=== PATIENT | male | born 1980 | race African-American/Black ===

== ENCOUNTER 2017-09-16 14:43 | Emergency (ER) | payer OTHER ==
[2017-09-16] MEDS ORDERED: DIPH,PERTUS(ACELL)TETVAC-LF 0.5 ML VIAL IM ONE (15:07)
[2017-09-16 15:09] VITALS: BP 110/70; PULSE 61; RESP 18; TEMP 98.3
--- NOTE | 2017-09-16 15:15 | ED ---
General Adult HPI - General Chief complaint: Wound/Laceration Stated complaint: Laceration Time Seen by Provider: 09/16/17 15:07 Source: patient, RN notes reviewed Mode of arrival: ambulatory Limitations: no limitations - History of Present Illness Initial comments: Patient 37-year-old male presenting to the emergency room today with chief complaint of laceration to the right forearm that occurred approximately 3 hours ago. He does with that he was using a steel box toe inserter slipped causing this laceration. Patient denies any other complaints or symptoms. Patient states tetanus up-to-date. Patient denies any recent fever, chills, shortness of breath , chest pain, back pain, abdominal pain, nausea or vomiting, numbness or tingling, headaches or visual changes, or any other complaints. - Related Data Allergies Allergy/AdvReac Type Severity Reaction Status Date / Time No Known Allergies Allergy Verified 09/16/17 15:07 Review of Systems ROS Statement: Those systems with pertinent positive or pertinent negative responses have been documented in the HPI. ROS Other: All systems not noted in ROS Statement are negative. Past Medical History Past Medical History: No Reported History History of Any Multi-Drug Resistant Organisms: None Reported Past Surgical History: No Surgical Hx Reported Past Psychological History: No Psychological Hx Reported Smoking Status: Current every day smoker Past Alcohol Use History: None Reported Past Drug Use History: None Reported General Exam - General Exam Comments Initial Comments: General: The patient is awake and alert, in no distress, and does not appear acutely ill. Neck: The neck is supple, there is no tenderness or JVD. Musculoskeletal/skin: Patient does have a 1 cm linear laceration to the volar aspect of the right forearm. Mild venous oozing. Full range motion. Sensation intact. Pulses equal bilaterally 2+ per strength 5/5. Neurological: A&O x 3. CN II-XII intact, There are no obvious motor or sensory deficits. Coordination appears grossly intact. Speech is normal. Psychiatric: Normal mood and affect. Limitations: no limitations Course Vital Signs 09/16/17 15:07 Temperature 98.3 F Pulse Rate 61 Respiratory 18 Rate Blood Pressure 110/70 O2 Sat by Pulse 100 Oximetry Procedures - Procedures Initial comment: Patient's laceration proximal 1 cm to the right volar aspect of the forearm. The skin was anesthetized with 1% lidocaine with epinephrine. The laceration was then cleansed with and irrigated with normal saline. The wound was inspected , and there was no evidence of injury to deep structures. No foreign body was noted in the wound. A total of 2 skin sutures were placed utilizing 4-0 nylon. Medical Decision Making - Medical Decision Making Patient's laceration close to the emergency room. Patient's tetanus updated. Patient discharged home. Advised watch for signs of infection return for any other concerns and have sutures removed in 7-10 days. Disposition Clinical Impression: Laceration Disposition: HOME SELF-CARE Condition: Good Instructions: Laceration (ED) Additional Instructions: Please return to the emergency room in 8-10 days to have sutures removed. Please watch for any signs of infection which may include increased pain, swelling, redness, fever or chills. Please return to emergency room for any signs of infection do occur. Please use clean soap and water over the area to prevent scabbing over your stitches. Please leave wound covered for the first 24-48 hours and then leave wound open to air. Please return to the emergency room for any other concerns. Is patient prescribed a controlled substance at d/c from ED?: No Referrals: Ramo Whitaker MD [Primary Care Provider] - 1-2 days Time of Disposition: 15:41
[2017-09-16] MEDS ORDERED: LIDOCAINE 1%/EPI 1:200,000 MPF 10 ML VIAL SQ STA (15:21)
[2017-09-16] MEDS ORDERED: LIDOCAINE 1%-EPI 1:100,000 30 ML VIAL SQ STA (15:28)
== END 2017-09-16 16:09 | disposition home or self-care (01) ==
LOC: EC 14:43
DX: S51.811A Laceration without foreign body of right forearm, initial encounter (principal); F17.200 Nicotine dependence, unspecified, uncomplicated; Z23 Encounter for immunization; W27.8XXA Contact with other nonpowered hand tool, initial encounter; Y93.89 Activity, other specified; Y92.69 Other specified industrial and construction area as the place of occurrence of the external cause; Y99.0 Civilian activity done for income or pay
CPT/HCPCS: 12001; 90471; 90715; 99282

== ENCOUNTER 2018-08-06 08:22 | Day surgery (SDC) | payer BC ==
[2018-08-04 15:46] VITALS: BMI 19.2
[2018-08-06] MEDS ORDERED: LIDOCAINE 1% 20 ML VIAL (10MG/ML) FOR IV START INTRADERMA ONE (08:52)
[2018-08-06] MEDS ORDERED: LACTATED RINGERS 1,000 ML IV ONE (08:52)
[2018-08-06 08:57] VITALS: RESP 16; TEMP 97.2
[2018-08-06] MEDS ORDERED: PROPOFOL 10 MG/ML 20 ML VIAL IV ONE (09:39)
--- NOTE | 2018-08-06 10:04 | P.PCN ---
Date of Procedure: 08/06/18 Procedure(s) Performed: Brief history: Patient is a pleasant 38-year-old -[place] male, scheduled for an elective upper endoscopy as well as colonoscopy as a part of evaluation of iron deficiency anemia and Hemoccult-positive stool. Procedure performed: Esophagogastroduodenoscopy with biopsy Colonoscopy Preoperative diagnosis: Iron deficiency anemia Hemoccult positive stool [place] [facility] [place]: After informed consent was obtained from the patient was brought into the endoscopy unit and IV sedation was administered by anesthesia under continuous monitoring. Initially upper endoscopy was done. The Olympus GF 160 video endoscope was inserted inserted into the mouth and esophagus intubated without any difficulty and was gradually advanced into the stomach and duodenum and carefully examined. The bulb and second part of the duodenum appeared normal. Biopsies were done from the duodenum to rule out celiac disease. The scope was then withdrawn into the stomach adequately insufflated with air and upon careful examination the antrum had mild gastritis and biopsies were done from this area. The body, cardia and fundus appeared normal. The scope was then withdrawn into the esophagus. The GE junction was located at 40 cm to the incisors. It appeared regular with no erythema erosions or ulcerations. Rest of the esophagus appeared normal. Patient tolerated the procedure well. At this time the patient continued to remain sedation. Initial digital rectal examination was normal. Olympus CF 160 video colonoscope was then inserted into the rectum and gradually advanced to the cecum without any difficulty. Careful examination was performed as the scope was gradually being withdrawn. The prep was excellent. The cecum, ascending colon, transverse colon, descending colon, sigmoid colon and rectum appeared normal. Retroflexion was performed in the rectum and no lesions were noted. Patient tolerated the procedure well. Impression: 1. Upper endoscopy revealed mild antral gastritis. 2. Colonoscopy was within normal with a colitis or colorectal neoplasia Recommendations: Findings of this examination were discussed with the patient as well as his family. He was advised to follow with the biopsy results.
[2018-08-06 10:30] VITALS: BP 123/87; PULSE 66
== END 2018-08-06 10:56 | disposition home or self-care (01) ==
LOC: ORWHC2ENDO 08:22
PROVIDERS: ATTEND Internal Medicine Gastroenterology
DX: K29.50 Unspecified chronic gastritis without bleeding (principal); D50.9 Iron deficiency anemia, unspecified; F17.200 Nicotine dependence, unspecified, uncomplicated
CPT/HCPCS: 88305; 45378; 43239; J2704

== ENCOUNTER 2018-09-27 06:27 | Day surgery (SDC) | payer BC ==
[2018-09-22 16:20] VITALS: BMI 17.9
[~2018-09-27 06:27] MED LIST: DEXAMETHASONE SOD PHOSPHATE 10 MG/ML 1 ML VIAL IV ONE; LACTATED RINGERS 1,000 ML IV SCH; LIDOCAINE 1% 20 ML VIAL (10MG/ML) FOR IV START INTRADERMA PRN; MIDAZOLAM 2 MG/2 ML VIAL IV PRN; fentaNYL (PF) 50 MCG/ML 2 ML AMP IV PRN
[2018-09-27 06:50] VITALS: RESP 16; TEMP 97.7
[2018-09-27] MEDS ORDERED: MIDAZOLAM 2 MG/2 ML VIAL ONE (07:31)
[2018-09-27] MEDS ORDERED: PROPOFOL 10 MG/ML 20 ML VIAL IV ONE (07:31)
[2018-09-27] MEDS ORDERED: fentaNYL (PF) 50 MCG/ML 2 ML AMP ONE (07:31)
--- NOTE | 2018-09-27 08:21 | PCN ---
PROCEDURE NOTE DATE OF SERVICE: September 27, 2018. PROCEDURE: Bone marrow aspirate and biopsy. INDICATION: Polycythemia vera. PROCEDURE: After obtaining consent from the patient, the procedure was performed in the endoscopy suite under general anesthesia performed by the anesthesia team. The patient was put in the left lateral decubitus position. The right posterior superior iliac crest was localized. Skin was cleansed with ChloraPrep. All sterile procedures were followed. Two milliliters of 2% Xylocaine was used for local anesthetic. The Monoject needle was inserted and 15 mL of aspirate was obtained and 1 cm core biopsy was obtained without any difficulties. Pressure applied afterwards. There was negligible blood loss. The patient tolerated the procedure very well without any immediate complications. MMODL / IJN: [id number] /
[2018-09-27 08:27] LABS: Anisocytosis Slight; Basophils # (A) 0.1 k/uL (0-0.2); Basophils % (A) 1 %; Eosinophils # (A) 0.4 k/uL (0-0.7); Eosinophils % (A) 8 %; HGB 18.8 gm/dL (13.0-17.5); Hypochromasia Slight; Lymphocytes # (A) 1.7 k/uL (1.0-4.8); Lymphocytes % (A) 29 %; MCH 23.3 pg (25.0-35.0); MCHC 30.7 g/dL (31.0-37.0); MCV 76.1 fL (80.0-100.0); Microcytosis Slight; Monocytes # (A) 0.4 k/uL (0-1.0); Monocytes % (A) 6 %; Neutrophils # (A) 2.9 k/uL (1.3-7.7); Neutrophils % (A) 52 %; Platelet Count 702 k/uL (150-450); Poikilocytosis Slight; RDW 17.5 % (11.5-15.5); Reticulocyte % 1.5 % (0.5-2.0); WBC 5.6 k/uL (3.8-10.6)
[2018-09-27 08:35] LABS: HCT 61.3 % (39.0-53.0); RBC 8.06 m/uL (4.30-5.90)
[2018-09-27 08:39] VITALS: BP 108/75; PULSE 64
== END 2018-09-27 09:07 | disposition home or self-care (01) ==
LOC: OR 06:27
PROVIDERS: ATTEND Internal Medicine Hematology & Oncology
DX: D45 Polycythemia vera (principal); K21.9 Gastro-esophageal reflux disease without esophagitis; F17.210 Nicotine dependence, cigarettes, uncomplicated; Z79.1 Long term (current) use of non-steroidal anti-inflammatories (NSAID); Z79.82 Long term (current) use of aspirin
CPT/HCPCS: 38222; 85025; 85045; J2250; J3010; J2704

== ENCOUNTER 2018-10-14 11:28 | Emergency (ER) | payer BC ==
[2018-10-14] MEDS ORDERED: SODIUM CHLORIDE 0.9% 1,000 ML IV STA (12:27)
--- NOTE | 2018-10-14 12:36 | ED ---
General Adult HPI - General Chief complaint: Dizziness Stated complaint: SOB, syncope Time Seen by Provider: 10/14/18 12:02 Source: patient, RN notes reviewed, old records reviewed Mode of arrival: ambulatory Limitations: no limitations - History of Present Illness Initial comments: Patient is a 38-year-old male who presents emergency Department today with complaints of dyspnea, dizziness plate is worse today. 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 He states that he sat down drink a lot of water during accident time he is continue to walk and still felt some shortness of breath. He has history of polycythemia vera. He states he had his last phlebotomy procedure done yesterday. Patient states that he is otherwise feeling well at this time. He denies any specific chest pain. - Related Data Home Medications Medication Instructions Recorded Confirmed Aspirin 325 mg PO DAILY 09/22/18 09/27/18 [id number] 1 each PO DIRECTED PRN 09/22/18 09/27/18 [Excedrin] Ibuprofen 800 mg PO DAILY PRN 09/22/18 09/27/18 Allergies Allergy/AdvReac Type Severity Reaction Status Date / Time No Known Allergies Allergy Verified 10/14/18 11:56 Review of Systems ROS Statement: Those systems with pertinent positive or pertinent negative responses have been documented in the HPI. ROS Other: All systems not noted in ROS Statement are negative. Past Medical History Past Medical History: No Reported History Additional Past Medical History / Comment(s): hx shingles, continues to have nerve pain left side of face, occasional migraines with blurred vision, poly cythemia History of Any Multi-Drug Resistant Organisms: None Reported Past Surgical History: No Surgical Hx Reported Additional Past Surgical History / Comment(s): colonoscopy, egd Past Anesthesia/Blood Transfusion Reactions: No Reported Reaction Additional Past Anesthesia/Blood Transfusion Reaction / Comment(s): . Past Psychological History: No Psychological Hx Reported Smoking Status: Current every day smoker Past Alcohol Use History: None Reported Past Drug Use History: None Reported - Past Family History Mother Family Medical History: No Reported History General Exam Limitations: no limitations General appearance: alert, in no apparent distress Head exam: Present: atraumatic, normocephalic, normal inspection Eye exam: Present: normal appearance, PERRL, EOMI. Absent: scleral icterus, conjunctival injection, periorbital swelling ENT exam: Present: normal exam, mucous membranes moist Neck exam: Present: normal inspection. Absent: tenderness, meningismus, lymphadenopathy Respiratory exam: Present: normal lung sounds bilaterally. Absent: respiratory distress, wheezes, rales, rhonchi, stridor Cardiovascular Exam: Present: regular rate, normal rhythm, normal heart sounds. Absent: systolic murmur, diastolic murmur, rubs, gallop, clicks GI/Abdominal exam: Present: soft, normal bowel sounds. Absent: distended, tenderness, guarding, rebound, rigid Course Vital Signs 10/14/18 10/14/18 10/14/18 11:52 12:57 12:59 Temperature 98.0 F Pulse Rate 72 62 Respiratory 16 28 H 18 Rate Blood Pressure 104/68 94/67 O2 Sat by Pulse 99 100 Oximetry 10/14/18 10/14/18 10/14/18 13:00 13:10 13:20 Temperature Pulse Rate 61 63 Respiratory 12 Rate Blood Pressure 94/67 91/61 112/73 O2 Sat by Pulse 99 100 Oximetry 10/14/18 10/14/18 13:30 13:40 Temperature Pulse Rate 58 L 64 Respiratory 16 16 Rate Blood Pressure 112/73 107/75 O2 Sat by Pulse 100 100 Oximetry Medical Decision Making - Medical Decision Making Patient is a 38-year-old male present today with episodes of near-syncope and felt short of breath lately work. Patient has history of positive TB of ear. Patient was receiving IV fluids are obtained. Upon arrival here he stated he otherwise felt well, denies any chest pain or symptoms. Patient lungs are clear to auscultation. Vital signs stable. EKG shows no significant change. Troponin and d-dimer are negative. Patient does have elevated platelets. Patient advised to options to could admit the Patient for for near syncope. Patient states he thinks this is related to heat exhaustion from work and would like to be discharged home. Discussed natriuretic hydrated. Discussed linear have any further symptoms to return to emergency department for reevaluation. All questions were answered. - Lab Data Result diagrams: 10/14/18 12:53 10/14/18 12:53 Lab Results 10/14/18 10/14/18 10/14/18 Range/Units 12:53 12:53 12:53 WBC 5.7 (3.8-10.6) k/uL RBC 6.76 H (4.30-5.90) m/uL Hgb 15.5 D (13.0-17.5) gm/dL Hct 50.3 (39.0-53.0) % MCV 74.4 L (80.0-100.0) fL MCH 22.9 L (25.0-35.0) pg MCHC 30.8 L (31.0-37.0) g/dL RDW 17.1 H (11.5-15.5) % Plt Count 856 H (150-450) k/uL Neutrophils % (Manual) 58 % Lymphocytes % (Manual) 25 % Monocytes % (Manual) 11 % Eosinophils % (Manual) 6 % Neutrophils # (Manual) 3.31 (1.3-7.7) k/uL Lymphocytes # (Manual) 1.43 (1.0-4.8) k/uL Monocytes # (Manual) 0.63 (0-1.0) k/uL Eosinophils # (Manual) 0.34 (0-0.7) k/uL Nucleated RBCs 0 (0-0) /100 WBC Manual Slide Review Performed Dimorphic RBCs Present Hypochromasia Marked Poikilocytosis Slight Anisocytosis Slight Microcytosis Slight Target Cells Present Ovalocytes Present PT 12.3 H (9.0-12.0) sec INR 1.2 H (<1.2) D-Dimer (<0.60) mg/L FEU Sodium 139 (137-145) mmol/L Potassium 4.4 (3.5-5.1) mmol/L Chloride 104 (98-107) mmol/L Carbon Dioxide 25 (22-30) mmol/L Anion Gap 10 mmol/L BUN 10 (9-20) mg/dL Creatinine 0.75 (0.66-1.25) mg/dL Est GFR (CKD-EPI)AfAm >90 (>60 ml/min/1.73 sqM) Est GFR (CKD-EPI)NonAf >90 (>60 ml/min/1.73 sqM) Glucose 81 (74-99) mg/dL Calcium 9.8 (8.4-10.2) mg/dL Total Bilirubin 0.9 (0.2-1.3) mg/dL AST 30 (17-59) U/L ALT 18 L (21-72) U/L Alkaline Phosphatase 48 (38-126) U/L Troponin I (0.000-0.034) ng/mL Total Protein 7.4 (6.3-8.2) g/dL Albumin 4.5 (3.5-5.0) g/dL 10/14/18 10/14/18 Range/Units 12:53 12:53 WBC (3.8-10.6) k/uL RBC (4.30-5.90) m/uL Hgb (13.0-17.5) gm/dL Hct (39.0-53.0) % MCV (80.0-100.0) fL MCH (25.0-35.0) pg MCHC (31.0-37.0) g/dL RDW (11.5-15.5) % Plt Count (150-450) k/uL Neutrophils % (Manual) % Lymphocytes % (Manual) % Monocytes % (Manual) % Eosinophils % (Manual) % Neutrophils # (Manual) (1.3-7.7) k/uL Lymphocytes # (Manual) (1.0-4.8) k/uL Monocytes # (Manual) (0-1.0) k/uL Eosinophils # (Manual) (0-0.7) k/uL Nucleated RBCs (0-0) /100 WBC Manual Slide Review Dimorphic RBCs Hypochromasia Poikilocytosis Anisocytosis Microcytosis Target Cells Ovalocytes PT (9.0-12.0) sec INR (<1.2) D-Dimer 0.20 (<0.60) mg/L FEU Sodium (137-145) mmol/L Potassium (3.5-5.1) mmol/L Chloride (98-107) mmol/L Carbon Dioxide (22-30) mmol/L Anion Gap mmol/L BUN (9-20) mg/dL Creatinine (0.66-1.25) mg/dL Est GFR (CKD-EPI)AfAm (>60 ml/min/1.73 sqM) Est GFR (CKD-EPI)NonAf (>60 ml/min/1.73 sqM) Glucose (74-99) mg/dL Calcium (8.4-10.2) mg/dL Total Bilirubin (0.2-1.3) mg/dL AST (17-59) U/L ALT (21-72) U/L Alkaline Phosphatase (38-126) U/L Troponin I <0.012 (0.000-0.034) ng/mL Total Protein (6.3-8.2) g/dL Albumin (3.5-5.0) g/dL 10/14/18 13:17 EKG performed at 1255 shows sinus rhythm early repolarization. There is normal EKG noted. Ventricular rate of 63 bpm. [place] interval is 174 ms. QRS duration 86 most seconds. QT QTc is 392/41 ms. - Radiology Data Radiology results: report reviewed Normal chest x-ray. Disposition Clinical Impression: Dizziness Disposition: HOME SELF-CARE Condition: Good Instructions (If sedation given, give patient instructions): Dizziness (ED) Additional Instructions: Advised to rest, remain hydrated. Close follow-up with primary care physician. Return to emergency department if any signs of chest pain worsening shortness breath or alarming signs or symptoms occur. Is patient prescribed a controlled substance at d/c from ED?: No Referrals: Asad Souza MD [Primary Care Provider] - 1-2 days Time of Disposition: 14:41
[2018-10-14 13:14] LABS: INR 1.2 (<1.2); Prothrombin Time 12.3 sec (9.0-12.0)
[2018-10-14 13:15] LABS: ALT 18 U/L (21-72); AST 30 U/L (17-59); African American GFR (CKD) >90 (>60 ml/min/1.73 sqM); Albumin 4.5 g/dL (3.5-5.0); Alkaline Phosphatase 48 U/L (38-126); Anion Gap 10 mmol/L; Blood Urea Nitrogen 10 mg/dL (9-20); Calcium 9.8 mg/dL (8.4-10.2); Carbon Dioxide 25 mmol/L (22-30); Chloride 104 mmol/L (98-107); Glucose 81 mg/dL (74-99); Potassium 4.4 mmol/L (3.5-5.1); Sodium 139 mmol/L (137-145); Total Bilirubin 0.9 mg/dL (0.2-1.3); Total Protein 7.4 g/dL (6.3-8.2)
--- NOTE | 2018-10-14 13:18 | XR ---
EXAMINATION TYPE: XR chest 2V DATE OF EXAM: 10/14/2018 COMPARISON: None INDICATION: Short of breath TECHNIQUE: Frontal and lateral views of the chest are obtained. FINDINGS: The heart size is normal. The pulmonary vasculature is normal. The lungs are clear. IMPRESSION: 1. No acute pulmonary process.
[2018-10-14 13:33] LABS: Anisocytosis Slight; HCT 50.3 % (39.0-53.0); Hypochromasia Marked; MCH 22.9 pg (25.0-35.0); MCHC 30.8 g/dL (31.0-37.0); MCV 74.4 fL (80.0-100.0); Mean Platelet Volume 7.1; Microcytosis Slight; Platelet Count 856 k/uL (150-450); Poikilocytosis Slight; RBC 6.76 m/uL (4.30-5.90); RDW 17.1 % (11.5-15.5); WBC 5.7 k/uL (3.8-10.6)
[2018-10-14 13:34] LABS: HGB 15.5 gm/dL (13.0-17.5)
[2018-10-14 14:00] LABS: Eosinophils # (M) 0.34 k/uL (0-0.7); Lymphocytes # (M) 1.43 k/uL (1.0-4.8); Monocytes # (M) 0.63 k/uL (0-1.0); Neutrophils # (M) 3.31 k/uL (1.3-7.7); Neutrophils % (M) 58 %; Nucleated Red Blood Cells 0 /100 WBC (0-0); Total Cells Counted 100
[2018-10-14 14:01] LABS: Mixed Population RBC Present; Ovalocytes Present; Target Cells Present
[2018-10-14 15:12] VITALS: BP 114/70; PULSE 66; RESP 18; TEMP 97.6
== END 2018-10-14 15:12 | disposition home or self-care (01) ==
LOC: EC 11:28
DX: R42 Dizziness and giddiness (principal); D47.3 Essential (hemorrhagic) thrombocythemia; R06.02 Shortness of breath; R55 Syncope and collapse; F17.200 Nicotine dependence, unspecified, uncomplicated; Z79.82 Long term (current) use of aspirin; Z86.2 Personal history of diseases of the blood and blood-forming organs and certain disorders involving the immune mechanism; Z86.11 Personal history of tuberculosis; Z98.890 Other specified postprocedural states; Z53.29 Procedure and treatment not carried out because of patient's decision for other reasons
CPT/HCPCS: 36415; 71046; 80053; 84484; 85025; 85379; 85610; 93005; 96360; 96361; 99284

== ENCOUNTER → 2019-08-26 | Outpatient (CLI) | payer BC ==
--- NOTE | 2019-08-26 08:09 | US ---
EXAMINATION TYPE: US venous doppler duplex LE RT DATE OF EXAM: 08/26/2019 7:32 AM COMPARISON: NONE CLINICAL HISTORY: 39-year-old male Pain right leg. SIDE PERFORMED: Right TECHNIQUE: The lower extremity deep venous system is examined utilizing real time linear array sonog torres with graded compression, doppler sonography and color-flow sonography. FINDINGS: VESSELS IMAGED: External Iliac Vein (EIV) Common Femoral Vein Deep Femoral Vein Greater Saphenous Vein * Femoral Vein Popliteal Vein Small Saphenous Vein * Proximal Calf Veins (* superficial vessels) Right Leg: Negative for DVT Hypoechoic fluid collection visualized right popliteal fossa measuring 4.4 x 1.9 x 4.0 cm IMPRESSION: 1. No evidence for DVT within the right lower extremity imaged from the groin to the upper calf. 2. Small to moderate-sized 4.4 cm [place] cyst containing some debris or synovitis.
== END | disposition home or self-care (01) ==
LOC: RADUSWWP 06:46
PROVIDERS: ATTEND Internal Medicine Hematology & Oncology
DX: M71.21 Synovial cyst of popliteal space [Baker], right knee (principal); R22.41 Localized swelling, mass and lump, right lower limb

== ENCOUNTER → 2023-11-26 | Outpatient (CLI) | payer OTHER ==
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
== END | disposition home or self-care (01) ==
LOC: RADCTMAIN 15:43
PROVIDERS: ATTEND Emergency Medicine
DX: J32.2 Chronic ethmoidal sinusitis (principal); K02.9 Dental caries, unspecified
CPT/HCPCS: 70480